=== PATIENT | male | born 1995 | race Caucasian/White ===

== ENCOUNTER 2020-04-07 20:51 | Emergency (ER) | payer OTHER ==
[2020-04-07 21:04] VITALS: BP 142/94; PULSE 71; TEMP 98.2; BMI 31.7
[2020-04-07] MEDS ORDERED: ACETAMINOPHEN 1000 MG/100 ML VIAL (NON FORMULARY) IVPB ONE (21:50)
[2020-04-07] MEDS ORDERED: SODIUM CHLORIDE 0.9% 500 ML INFUS.BAG IV ONE (22:43)
[2020-04-07 23:21] LABS: EOS % 1.6 % (0-4.5); HEMATOCRIT 42.5 % (35.4-49); HEMOGLOBIN 14.5 GM/dL (11.7-16.9); LYMPH % 29.1 % (8-40); MCH 30.5 pg (25.7-33.7); MCHC 34.1 g/dl (32.0-35.9); MEAN CELL VOLUME 89.4 fl (80-96); MEAN PLT VOLUME 8.4 fl (7.5-11.1); MONO % 9.6 % (3.8-10.2); NEUT % 58.7 % (42.8-82.8); PLATELET COUNT 365 K/MM3 (134-434); RBC 4.76 M/mm3 (4.00-5.60); RDW 13.6 % (11.9-15.9)
[2020-04-07 23:38] LABS: POTASSIUM 3.6 mmol/L (3.5-5.1)
[2020-04-07 23:41] LABS: ALBUMIN 3.9 g/dl (3.4-5.0); BLOOD UREA NITROGEN 7.2 mg/dL (7-18); CALCIUM 9.2 mg/dL (8.5-10.1)
[2020-04-07 23:44] LABS: CREATININE 0.8 mg/dL (0.55-1.3)
[2020-04-07 23:46] LABS: BILIRUBIN,TOTAL 0.9 mg/dL (0.2-1); TOT PROT 7.6 g/dl (6.4-8.2)
[2020-04-08] MEDS ORDERED: AMOX TR/POT CLAV 875MG/125MG TABLETS (FP) PO ONE (02:46)
[2020-04-08] MEDS ORDERED: AMOX TR/POT CLAV 875MG/125MG TABLETS (FP) ONE (03:02)
== END 2020-04-08 03:11 | disposition left against medical advice (07) ==
LOC: JER 20:51
PROC: 3E0333Z Introduction of Anti-inflammatory into Peripheral Vein, Percutaneous Approach (ICD-10-PCS; principal; 2020-04-07)
DX: R10.31 Right lower quadrant pain (principal); K35.80 Unspecified acute appendicitis
CPT/HCPCS: 36415; 74177-TC; 80053; 83690; 85025; 93005; 93010; 99285-25; J0131

== ENCOUNTER 2020-04-09 09:01 | Inpatient (IN) | payer OTHER ==
[2020-04-09 09:19] VITALS: BMI 31.5
[2020-04-09 10:30] LABS: EOS % 1.4 % (0-4.5); HEMATOCRIT 46.1 % (35.4-49); HEMOGLOBIN 15.7 GM/dL (11.7-16.9); LYMPH % 28.3 % (8-40); MCH 30.5 pg (25.7-33.7); MCHC 34.1 g/dl (32.0-35.9); MEAN CELL VOLUME 89.4 fl (80-96); MEAN PLT VOLUME 8.3 fl (7.5-11.1); MONO % 7.8 % (3.8-10.2); NEUT % 61.5 % (42.8-82.8); PLATELET COUNT 373 K/MM3 (134-434); RBC 5.16 M/mm3 (4.00-5.60); RDW 13.4 % (11.9-15.9); WHITE BLOOD COUNT 8.5 K/mm3 (4.0-10.0)
[2020-04-09 10:31] LABS: URINE APPEARANCE CLEAR; URINE BILIRUBIN NEGATIVE (NEGATIVE); URINE COLOR YELLOW; URINE GLUCOSE (UA) NEGATIVE (NEGATIVE); URINE KETONE NEGATIVE (NEGATIVE); URINE LEUK ESTERASE NEGATIVE (NEGATIVE); URINE NITRITE NEGATIVE (NEGATIVE); URINE PROTEIN NEGATIVE (NEGATIVE); URINE UROBILINOGEN 0.2 mg/dL (0.2-1.0)
[2020-04-09 10:52] LABS: POTASSIUM 3.9 mmol/L (3.5-5.1)
[2020-04-09 10:54] LABS: CALCIUM 9.2 mg/dL (8.5-10.1)
[2020-04-09 10:58] LABS: CREATININE 0.8 mg/dL (0.55-1.3)
[2020-04-09 10:58] LABS: EPI CELLS 2 /uL (0-25.1); HYALINE CASTS 0 /uL (0-3.1); URINE BACTERIA 2 /uL (0-1359); URINE RBC 1 /uL (0-23.9); URINE WBC 1 /uL (0-25.8)
[2020-04-09 10:59] LABS: BILIRUBIN,TOTAL 0.6 mg/dL (0.2-1)
[2020-04-09 12:55] LABS: INR 1.01 (0.83-1.09); PROTHROMBIN TIME (PATIENT) 12.4 SEC (9.7-13.0)
[2020-04-09] MEDS ORDERED: PIPERACILLIN/TAZOB 3.375 GM 3.375 GM/50 ML BAG IVPB ONE ×2 (15:35→19:47)
[2020-04-09] MEDS ORDERED: SODIUM CHLORIDE 1,000 ML IV STA (15:40)
[2020-04-09] MEDS ORDERED: PIPERACILLIN/TAZOB 3.375 GM 3.375 GM in DEXTROSE 5%-WATER - 50 ML IVPB ONE (15:45)
[2020-04-09 16:07] LABS: BASO % 0.8 % (0-2.0); EOS % 0.8 % (0-4.5); HEMATOCRIT 44.3 % (35.4-49); LYMPH % 29.7 % (8-40); MCH 30.7 pg (25.7-33.7); MCHC 33.9 g/dl (32.0-35.9); MEAN CELL VOLUME 90.6 fl (80-96); MEAN PLT VOLUME 8.4 fl (7.5-11.1); MONO % 7.4 % (3.8-10.2); NEUT % 61.3 % (42.8-82.8); PLATELET COUNT 383 K/MM3 (134-434); RBC 4.89 M/mm3 (4.00-5.60); RDW 13.8 % (11.9-15.9); WHITE BLOOD COUNT 10.4 K/mm3 (4.0-10.0)
[2020-04-09] MEDS ORDERED: PROPOFOL 20 ML ONE (17:57)
[2020-04-09] MEDS ORDERED: fentaNYL CITRATE 250 MCG/5 ML VIAL ONE (17:57)
[2020-04-09] MEDS ORDERED: SUCCINYLCHOLINE CHLORIDE 200 MG/10 ML SYRINGE ONE (17:58)
[2020-04-09] MEDS ORDERED: ROCURONIUM BROMIDE 100 MG/10 ML VIAL ONE (17:58)
[2020-04-09] MEDS ORDERED: MIDAZOLAM HCL 2 MG/2 ML SINGLE DOSE VIAL ONE (17:58)
[2020-04-09] MEDS ORDERED: ONDANSETRON 4 MG/2 ML VIAL IVPUSH PRN ×2 (18:07→18:54)
[2020-04-09] MEDS ORDERED: ACETAMINOPHEN 325 MG TABLET (FP) PO PRN (18:07)
[2020-04-09] MEDS ORDERED: oxyCODONE HCL 5 MG TABLET PO PRN (18:07)
[2020-04-09] MEDS ORDERED: morphine SULFATE 4 MG/ML VIAL IVPB PRN (18:07)
[2020-04-09] MEDS ORDERED: D5-1/2NS+20 MEQ KCL - 20 MEQ/1,000 ML INFUS.BAG IV SCH (18:15)
[2020-04-09] MEDS ORDERED: PROMETHAZINE HCL 25 MG/1 ML VIAL IVPUSH PRN (18:54)
[2020-04-09] MEDS ORDERED: ONDANSETRON 4 MG/2 ML VIAL ONE (19:02)
[2020-04-09] MEDS ORDERED: KETOROLAC TROMETHAMINE 30 MG/1 ML VIAL ONE (19:02)
[2020-04-09] MEDS ORDERED: DEXAMETHASONE SOD PHOSPHATE 4 MG/1 ML VIAL ONE (19:02)
[2020-04-09] MEDS ORDERED: NEOSTIGMINE METHYLSULFATE 0.5 MG/ML - 10 ML MDV ONE (19:03)
[2020-04-09] MEDS ORDERED: GLYCOPYRROLATE 0.2 MG/1 ML VIAL ONE (19:03)
[2020-04-09] MEDS ORDERED: PIPERACILLIN/TAZOB 3.375 GM 3.375 GM in DEXTROSE 5%-WATER - 50 ML IVPB SCH (20:15)
[2020-04-09] MEDS ORDERED: DEXTROSE 5%-WATER - 50 ML IVPB ONE (22:56)
[2020-04-09] MEDS ORDERED: PIPERACILLIN/TAZOBACTAM 3.375 GM VIAL IVPB ONE (22:56)
[2020-04-10] MEDS: PIPERACILLIN/TAZOB 3.375 GM 3.375 GM in DEXTROSE 5%-WATER - 50 ML IVPB SCH ×2 (00:30→09:02)
[2020-04-10] MEDS ORDERED: DEXTROSE 5%-WATER - 50 ML IVPB ONE (08:57)
[2020-04-10] MEDS ORDERED: PIPERACILLIN/TAZOBACTAM 3.375 GM VIAL IVPB ONE (08:57)
[2020-04-10] MEDS: oxyCODONE HCL 5 MG TABLET PO PRN ×2 (09:02→14:24)
[2020-04-10] MEDS ORDERED: PT OWN MED DRAWER 7, Y5N ONE (09:20)
[2020-04-10 09:22] LABS: HEMOGLOBIN 14.7 GM/dL (11.7-16.9); MCH 31.1 pg (25.7-33.7); MCHC 35.1 g/dl (32.0-35.9); MEAN CELL VOLUME 88.7 fl (80-96); MEAN PLT VOLUME 8.6 fl (7.5-11.1); PLATELET COUNT 410 K/MM3 (134-434); RBC 4.74 M/mm3 (4.00-5.60); RDW 13.4 % (11.9-15.9); WHITE BLOOD COUNT 11.9 K/mm3 (4.0-10.0)
[2020-04-10 09:50] LABS: POTASSIUM 4.2 mmol/L (3.5-5.1)
[2020-04-10] MEDS ORDERED: ENOXAPARIN NA (PORCINE) 40 MG/0.4 ML DISP.SYRIN SQ SCH (10:00)
[2020-04-10 10:32] LABS: MAGNESIUM 2.1 mg/dL (1.8-2.4)
[2020-04-10 10:35] LABS: CALCIUM 9.7 mg/dL (8.5-10.1); CREATININE 0.8 mg/dL (0.55-1.3); PHOSPHOROUS 5.1 mg/dL (2.5-4.9)
[2020-04-10 10:45] LABS: BLOOD UREA NITROGEN 9.4 mg/dL (7-18)
[2020-04-10 14:11] VITALS: BP 123/72; PULSE 65; TEMP 98.3
== END 2020-04-10 15:19 | disposition home or self-care (01) | DRG 225 ==
LOC: JER 09:01 → J6S 21:12 → JER 04-10 04:09
PROVIDERS: ADMIT Hospitalist; ATTEND Student in an Organized Health Care Education/Training Program
PROC: 0DTJ4ZZ Resection of Appendix, Percutaneous Endoscopic Approach (ICD-10-PCS; principal; 2020-04-09 18:00)
DX: K35.80 Unspecified acute appendicitis (principal); E66.9 Obesity, unspecified; Z68.31 Body mass index [BMI] 31.0-31.9, adult; N63.0 Unspecified lump in unspecified breast; K76.0 Fatty (change of) liver, not elsewhere classified
CPT/HCPCS: 36415; 76856-TC; 80048; 80053; 81003; 83690; 83735; 84100; 85025; 85027; 85610; 86850; 86900; 86901; 87086; 88304-TC; 94760; 99285-25; C9803; U0003

== ENCOUNTER 2020-12-24 09:38 | Emergency (ER) | payer OTHER ==
[2020-12-24 09:44] VITALS: BP 136/88; PULSE 82; TEMP 98; BMI 31.5
[2020-12-24 11:24] LABS: HEMATOCRIT 45.2 % (35.4-49); HEMOGLOBIN 15.7 GM/dL (11.7-16.9); MCH 31.4 pg (25.7-33.7); MCHC 34.7 g/dl (32.0-35.9); MEAN CELL VOLUME 90.5 fl (80-96); MEAN PLT VOLUME 8.6 fl (7.5-11.1); PLATELET COUNT 340 10^3/uL (134-434); RDW 13.7 % (11.9-15.9); URINE APPEARANCE CLEAR; URINE BILIRUBIN NEGATIVE (NEGATIVE); URINE COLOR DK YELLOW; URINE GLUCOSE (UA) NEGATIVE (NEGATIVE); URINE KETONE NEGATIVE (NEGATIVE); URINE LEUK ESTERASE NEGATIVE (NEGATIVE); URINE NITRITE NEGATIVE (NEGATIVE); URINE PROTEIN NEGATIVE (NEGATIVE); WHITE BLOOD COUNT 9.7 K/mm3 (4.0-10.0)
[2020-12-24 11:43] LABS: CHLORIDE 105 mmol/L (98-107); SODIUM 135 mmol/L (136-145)
[2020-12-24 11:47] LABS: ALBUMIN 3.8 g/dl (3.4-5.0); CALCIUM 9.5 mg/dL (8.5-10.1)
[2020-12-24 11:48] LABS: BLOOD UREA NITROGEN 9.7 mg/dL (7-18); CO2 26 mmol/L (21-32); GLUCOSE,RANDOM 97 mg/dL (74-106)
[2020-12-24] MEDS ORDERED: SODIUM CHLORIDE 1,000 ML IV STA (11:48)
[2020-12-24 11:49] LABS: CREATININE 0.8 mg/dL (0.55-1.3)
[2020-12-24 11:51] LABS: ALK PHOS 116 U/L (45-117); BILIRUBIN,TOTAL 0.8 mg/dL (0.2-1); TOT PROT 8.8 g/dl (6.4-8.2)
[2020-12-24 11:53] LABS: ANION GAP 4 MMOL/L (8-16); SGOT/AST 263 U/L (15-37); SGPT/ALT 418 U/L (13-61)
== END 2020-12-24 16:00 | disposition home or self-care (01) ==
LOC: JER 09:38
PROC: 3E0337Z Introduction of Electrolytic and Water Balance Substance into Peripheral Vein, Percutaneous Approach (ICD-10-PCS; principal; 2020-12-24)
DX: R10.9 Unspecified abdominal pain (principal)
CPT/HCPCS: 36415; 74176-TC; 80053; 81003; 85027; 87086; 99284-25

== ENCOUNTER 2021-05-09 13:17 | Emergency (ER) | payer OTHER ==
[2021-05-09 13:40] VITALS: BMI 22.9
[2021-05-09] MEDS ORDERED: KETOROLAC TROMETHAMINE 30 MG/1 ML VIAL IVPUSH ONE (14:58)
[2021-05-09 15:04] LABS: BASO % 0.9 % (0-2.0); EOS % 0.7 % (0-4.5); HEMATOCRIT 43.4 % (35.4-49); HEMOGLOBIN 14.9 GM/dL (11.7-16.9); LYMPH % 28.3 % (8-40); MCH 29.7 pg (25.7-33.7); MCHC 34.4 g/dl (32.0-35.9); MEAN CELL VOLUME 86.4 fl (80-96); MEAN PLT VOLUME 8.1 fl (7.5-11.1); MONO % 5.7 % (3.8-10.2); NEUT % 64.4 % (42.8-82.8); PLATELET COUNT 381 10^3/uL (134-434); RBC 5.02 M/mm3 (4.00-5.60); RDW 14.1 % (11.9-15.9); WHITE BLOOD COUNT 9.6 K/mm3 (4.0-10.0)
[2021-05-09 15:28] LABS: CALCIUM 9.6 mg/dL (8.5-10.1)
[2021-05-09 15:29] LABS: ALBUMIN 4.4 g/dl (3.4-5.0)
[2021-05-09 15:31] LABS: CREATININE 0.7 mg/dL (0.55-1.3)
[2021-05-09 15:33] LABS: BILIRUBIN,TOTAL 0.5 mg/dL (0.2-1)
[2021-05-09] MEDS ORDERED: KETOROLAC TROMETHAMINE 30 MG/1 ML VIAL ONE (15:34)
[2021-05-09 16:54] LABS: PH,URINE 5.5 (5.0-8.0); URINE APPEARANCE CLEAR; URINE BILIRUBIN NEGATIVE (NEGATIVE); URINE COLOR YELLOW; URINE GLUCOSE (UA) NEGATIVE (NEGATIVE); URINE KETONE NEGATIVE (NEGATIVE); URINE LEUK ESTERASE NEGATIVE (NEGATIVE); URINE NITRITE NEGATIVE (NEGATIVE); URINE PROTEIN NEGATIVE (NEGATIVE); URINE UROBILINOGEN 0.2 mg/dL (0.2-1.0)
[2021-05-09 17:50] VITALS: BP 124/72; PULSE 67; TEMP 98.7
== END 2021-05-09 17:51 | disposition home or self-care (01) ==
LOC: JER 13:17
PROC: 3E0333Z Introduction of Anti-inflammatory into Peripheral Vein, Percutaneous Approach (ICD-10-PCS; principal; 2021-05-09)
DX: R10.9 Unspecified abdominal pain (principal)
CPT/HCPCS: 36415; 76705-TC; 80053; 81003; 83690; 85025; 87086; 96374; 99284-25

== ENCOUNTER 2021-11-17 13:45 | Emergency (ER) | payer OTHER ==
[2021-11-17 13:55] VITALS: BP 127/78; PULSE 79; RESP 20; TEMP 98.1; BMI 32.3
[2021-11-17] MEDS ORDERED: morphine CARPU-JECT 4 MG/1 ML DISP.SYRIN IVPUSH ONE (15:43)
[2021-11-17] MEDS ORDERED: ONDANSETRON 4 MG/2 ML VIAL IVPUSH ONE (15:43)
[2021-11-17] MEDS ORDERED: SODIUM CHLORIDE 1,000 ML IV STA (15:43)
[2021-11-17] MEDS ORDERED: morphine SULFATE 4 MG/ML VIAL ONE (16:12)
[2021-11-17] MEDS ORDERED: ONDANSETRON 4 MG/2 ML VIAL ONE (16:13)
[2021-11-17 17:44] LABS: EOS % 1.6 % (0-4.5); HEMATOCRIT 46.3 % (35.4-49); HEMOGLOBIN 15.6 GM/dL (11.7-16.9); LYMPH % 28.3 % (8-40); MCH 29.5 pg (25.7-33.7); MCHC 33.7 g/dl (32.0-35.9); MEAN CELL VOLUME 87.3 fl (80-96); MEAN PLT VOLUME 8.9 fl (7.5-11.1); NEUT % 60.1 % (42.8-82.8); PLATELET COUNT 347 10^3/uL (134-434); RDW 13.4 % (11.9-15.9); WHITE BLOOD COUNT 10.8 K/mm3 (4.0-10.0)
[2021-11-17 17:52] LABS: CALCIUM 9.2 mg/dL (8.5-10.1)
[2021-11-17 17:53] LABS: ALBUMIN 4.2 g/dl (3.4-5.0); BLOOD UREA NITROGEN 9.3 mg/dL (7-18)
[2021-11-17 17:57] LABS: BILIRUBIN,TOTAL 0.4 mg/dL (0.2-1)
[2021-11-17 17:58] LABS: TOT PROT 8.1 g/dl (6.4-8.2)
[2021-11-17 17:59] LABS: CREATININE 0.8 mg/dL (0.55-1.3)
[2021-11-17 19:16] LABS: PH,URINE 7.5 (5.0-8.0); URINE APPEARANCE CLEAR; URINE BILIRUBIN NEGATIVE (NEGATIVE); URINE COLOR YELLOW; URINE GLUCOSE (UA) NEGATIVE (NEGATIVE); URINE KETONE NEGATIVE (NEGATIVE); URINE LEUK ESTERASE NEGATIVE (NEGATIVE); URINE NITRITE NEGATIVE (NEGATIVE); URINE PROTEIN NEGATIVE (NEGATIVE); URINE UROBILINOGEN 0.2 mg/dL (0.2-1.0)
== END 2021-11-17 20:04 | disposition home or self-care (01) ==
LOC: JER 13:45
PROC: 3E033NZ Introduction of Analgesics, Hypnotics, Sedatives into Peripheral Vein, Percutaneous Approach (ICD-10-PCS; principal; 2021-11-17)
PROC: 3E033GC Introduction of Other Therapeutic Substance into Peripheral Vein, Percutaneous Approach (ICD-10-PCS; 2021-11-17)
PROC: 3E0337Z Introduction of Electrolytic and Water Balance Substance into Peripheral Vein, Percutaneous Approach (ICD-10-PCS; 2021-11-17)
DX: R10.11 Right upper quadrant pain (principal)
CPT/HCPCS: 36415; 76705-TC; 80053; 81003; 83690; 85025; 87086; 99284-25; C9803-CS; U0003; U0005

== ENCOUNTER 2023-02-26 16:29 | Emergency (ER) | payer OTHER ==
[2023-02-26 17:11] VITALS: RESP 18; BMI 36.0
[2023-02-26] MEDS ORDERED: MECLIZINE HCL 25 MG TABLET (FP) PO ONE (20:03)
[2023-02-26] MEDS ORDERED: SODIUM CHLORIDE 0.9% 500 ML INFUS.BAG IV ONE (20:03)
[2023-02-26] MEDS ORDERED: MECLIZINE HCL 25 MG TABLET (FP) ONE (20:19)
[2023-02-26 20:35] VITALS: BP 139/92; PULSE 82; TEMP 98.9
[2023-02-26 20:35] LABS: EOS % 1.5 % (0-4.5); HEMOGLOBIN 15.1 GM/dL (11.7-16.9); MCH 29.6 pg (25.7-33.7); MCHC 33.5 g/dl (32.0-35.9); MEAN CELL VOLUME 88.3 fl (80-96); MEAN PLT VOLUME 7.9 fl (7.5-11.1); MONO % 8.6 % (3.8-10.2); NEUT % 58.9 % (42.8-82.8); PLATELET COUNT 385 10^3/uL (134-434); RBC 5.09 M/mm3 (4.00-5.60); WHITE BLOOD COUNT 10.9 K/mm3 (4.0-10.0)
[2023-02-26 20:54] LABS: POTASSIUM 3.9 mmol/L (3.5-5.1)
[2023-02-26 20:56] LABS: ALBUMIN 3.9 g/dl (3.4-5.0); BLOOD UREA NITROGEN 11.2 mg/dL (7-18)
[2023-02-26 20:59] LABS: CREATININE 0.8 mg/dL (0.55-1.3)
[2023-02-26 21:01] LABS: BILIRUBIN,TOTAL 0.4 mg/dL (0.2-1); TOT PROT 7.9 g/dl (6.4-8.2)
== END 2023-02-26 22:24 | disposition home or self-care (01) ==
LOC: JER 16:29
DX: R42 Dizziness and giddiness (principal)
CPT/HCPCS: 36415; 70450-TC; 80053; 85025; 93005; 93010; 99285-25

== ENCOUNTER 2023-03-24 15:12 | Emergency (ER) | payer OTHER ==
[2023-03-24 15:15] VITALS: BMI 32.5
[2023-03-24] MEDS ORDERED: IBUPROFEN 600 MG TABLET (FP) PO ONE ×3 (16:34→17:05)
[2023-03-24] MEDS ORDERED: ACETAMINOPHEN 500 MG TABLET (FP) PO ONE (16:34)
[2023-03-24] MEDS ORDERED: ERYTHROMYCIN 0.5% OPHTHALMIC OINTMENT 3.5 GM TUBE OS SCH (16:45)
[2023-03-24] MEDS ORDERED: ACETAMINOPHEN 500 MG TABLET (FP) ONE (17:03)
[2023-03-24] MEDS ORDERED: ERYTHROMYCIN 0.5% OPHTHALMIC OINTMENT 3.5 GM TUBE ONE (17:03)
[2023-03-24 18:35] VITALS: BP 119/70; PULSE 99; RESP 16; TEMP 100.9
== END 2023-03-24 19:01 | disposition home or self-care (01) ==
LOC: JERFT 15:12
DX: H10.9 Unspecified conjunctivitis (principal); H57.12 Ocular pain, left eye; H57.89 Other specified disorders of eye and adnexa
CPT/HCPCS: 99283-25

== ENCOUNTER 2023-04-19 21:26 | Emergency (ER) | payer OTHER ==
[2023-04-19 21:35] VITALS: BP 122/81; PULSE 80; RESP 18; TEMP 98.2; BMI 33.5
[2023-04-19 22:29] LABS: PH,URINE 5.5 (5.0-8.0); URINE APPEARANCE CLEAR; URINE BILIRUBIN NEGATIVE (NEGATIVE); URINE COLOR YELLOW; URINE GLUCOSE (UA) NEGATIVE (NEGATIVE); URINE KETONE NEGATIVE (NEGATIVE); URINE LEUK ESTERASE NEGATIVE (NEGATIVE); URINE NITRITE NEGATIVE (NEGATIVE); URINE PROTEIN NEGATIVE (NEGATIVE); URINE UROBILINOGEN 0.2 mg/dL (0.2-1.0)
[2023-04-19] MEDS ORDERED: DOXYCYCLINE HYCLATE 100 MG CAPSULE PO ONE ×2 (22:59→23:19)
[2023-04-19] MEDS ORDERED: IBUPROFEN 600 MG TABLET (FP) PO ONE ×2 (23:04→23:19)
== END 2023-04-19 23:33 | disposition home or self-care (01) ==
LOC: JER 21:26
DX: R10.30 Lower abdominal pain, unspecified (principal); R30.0 Dysuria
CPT/HCPCS: 36415; 81003; 87086; 87491; 87591; 99284-25

== ENCOUNTER 2023-08-08 19:56 | Emergency (ER) | payer OTHER ==
[2023-08-08 20:00] VITALS: BP 137/92; PULSE 83; RESP 18; TEMP 98.1; BMI 29.5
[2023-08-08] MEDS: FAMOTIDINE 20 MG/50 ML IVPB 20 MG/50 ML MG IVPB ONE (21:15)
[2023-08-08] MEDS ORDERED: ACETAMINOPHEN INJECTION 100 ML IVPB ONE (21:51)
[2023-08-08] MEDS ORDERED: FAMOTIDINE 20 MG/50 ML IVPB 20 MG/50 ML MG IVPB ONE (21:51)
[2023-08-08] MEDS: ACETAMINOPHEN 1000 MG/100 ML BAG IVPB ONE (22:07)
[2023-08-08] MEDS: LACTATED RINGERS SOLUTION 1000 ML INFUS.BAG IV ONE (22:07)
[2023-08-08 22:11] LABS: BASO % 1.1 % (0-2.0); EOS % 0.9 % (0-4.5); HEMATOCRIT 45.8 % (35.4-49); HEMOGLOBIN 15.9 GM/dL (11.7-16.9); LYMPH % 31.2 % (8-40); MCH 30.1 pg (25.7-33.7); MCHC 34.7 g/dl (32.0-35.9); MEAN CELL VOLUME 86.8 fl (80-96); MEAN PLT VOLUME 7.9 fl (7.5-11.1); MONO % 6.6 % (3.8-10.2); NEUT % 60.2 % (42.8-82.8); PLATELET COUNT 364 10^3/uL (134-434); RBC 5.27 M/mm3 (4.00-5.60); RDW 13.8 % (11.9-15.9); WHITE BLOOD COUNT 10.5 K/mm3 (4.0-10.0)
[2023-08-08 22:31] LABS: POTASSIUM 3.6 mmol/L (3.5-5.1)
[2023-08-08 22:33] LABS: CALCIUM 9.5 mg/dL (8.5-10.1)
[2023-08-08 22:34] LABS: BLOOD UREA NITROGEN 10.9 mg/dL (7-18)
[2023-08-08 22:37] LABS: CREATININE 0.7 mg/dL (0.55-1.3)
[2023-08-08 22:38] LABS: BILIRUBIN,TOTAL 0.4 mg/dL (0.2-1)
[2023-08-08 22:39] LABS: TOT PROT 7.9 g/dl (6.4-8.2)
[2023-08-09] MEDS ORDERED: MAG HYDROX/AL HYDROX/SIMETH 30 ML UNIT-DOSE CUP ONE (01:04)
[2023-08-09] MEDS: MAG HYDROX/AL HYDROX/SIMETH 30 ML UNIT-DOSE CUP PO ONE (01:05)
== END 2023-08-09 02:07 | disposition home or self-care (01) ==
LOC: JER 19:56
PROC: 3E033GC Introduction of Other Therapeutic Substance into Peripheral Vein, Percutaneous Approach (ICD-10-PCS; principal; 2023-08-08)
PROC: 3E033NZ Introduction of Analgesics, Hypnotics, Sedatives into Peripheral Vein, Percutaneous Approach (ICD-10-PCS; 2023-08-08)
DX: R10.13 Epigastric pain (principal); R10.30 Lower abdominal pain, unspecified; K76.0 Fatty (change of) liver, not elsewhere classified
CPT/HCPCS: 36415; 74177-TC; 76705-TC; 80053; 83690; 85025; 99285-25; J0131; Q9967